=== PATIENT | male | born 1975 | race Two or more races ===

== ENCOUNTER → 2022-08-06 | Outpatient (CLI) | payer OTHER, BC ==
[2022-08-06 15:37] LABS: Eosinophils # (auto) 0.1 10 ^3/uL (0-0.8); Hemoglobin 11.8 g/dL (13.5-17.5); Lymphocytes # (auto) 1.8 10 ^3/uL (0.4-5.4); Monocytes # (auto) 0.5 10 ^3/uL (0-1.3); Neutrophils # (auto) 2.8 10 ^3/uL (1.6-8.6); Nucleated Red Blood Cells % 0.1 %; White Blood Cell 5.3 10^3/uL (4.4-10.8)
[2022-08-06 15:38] LABS: Basophils # (auto) 0 10 ^3/uL (0-0.2); Basophils % (auto) 0.7 % (0.0-2.0); Eosinophils % (auto) 2.4 % (0.0-7.0); Hematocrit 37.9 % (41.0-53.0); Mean Corpuscular Hemoglobin 22.1 pg (28.0-32.0); Mean Corpuscular Hgb Conc. 31.2 g/dL (32.0-36.0); Mean Corpuscular Volume 70.8 fL (80.0-100.0); Monocytes % (auto) 9.3 % (0.0-12.0); Neutrophils % (auto) 52.6 % (37.0-80.0); Red Blood Cells 5.36 10^6/uL (4.5-5.90)
[2022-08-06 15:45] LABS: Urine Bacteria NONE SEEN /hpf (None Seen); Urine Blood Negative /uL (Negative); Urine Mucus FEW (None Seen); Urine Specific Gravity 1.029 (1.001-1.035); Urine WBC 1 /hpf (0 - 3)
[2022-08-06 16:24] LABS: Potassium 4.4 mmol/L (3.5-5.1)
[2022-08-06 16:33] LABS: BUN/Creatinine Ratio 19.6 (10.0-20.0)
== END | disposition home or self-care (01) ==
LOC: LAB 15:23
PROVIDERS: ATTEND Internal Medicine
DX: Z00.00 Encounter for general adult medical examination without abnormal findings (principal)
CPT/HCPCS: 36415; 80048; 80061; 81001; 84153; 85025

== ENCOUNTER → 2022-08-06 | Outpatient (CLI) | payer OTHER, BC | END | disposition home or self-care (01) | LOC: XYW 15:22 | PROVIDERS: ATTEND Internal Medicine | DX: I08.1 Rheumatic disorders of both mitral and tricuspid valves (principal); Z98.890 Other specified postprocedural states | CPT/HCPCS: 93306 ==